=== PATIENT | female | born 1955 | race Caucasian/White ===

== ENCOUNTER → 2017-07-28 | Outpatient (CLI) | payer BC ==
[~2017-07-28] MED LIST: CITA20 PO; NEBI10 PO; TELM20 PO
[2017-07-29 09:49] LABS: Source ENDOCERVICAL/CE
== END | disposition home or self-care (01) ==
LOC: LAB 13:43
PROVIDERS: Nurse Practitioner
DX: Z01.419 Encounter for gynecological examination (general) (routine) without abnormal findings (principal)
CPT/HCPCS: G0145

== ENCOUNTER 2021-10-26 22:22 | Emergency (ER) | payer BC ==
[~2021-10-26] VITALS: Ht 167.6 cm; Wt 68.0 kg
[2021-10-26] MEDS ORDERED: Silvadene20 GM TOP (23:30)
[2021-10-26] MEDS ORDERED: Percocet 5-3251 EACH PO (23:30)
== END 2021-10-27 00:03 | disposition home or self-care (01) ==
LOC: ER 22:22
DX: T22.212A Burn of second degree of left forearm, initial encounter (principal); T31.0 Burns involving less than 10% of body surface; X15.0XXA Contact with hot stove (kitchen), initial encounter; I10 Essential (primary) hypertension; Z79.899 Other long term (current) drug therapy; Z23 Encounter for immunization
CPT/HCPCS: 90714; A9270

== ENCOUNTER 2021-11-04 07:23 | Day surgery (SDC) | payer BC ==
[~2021-11-04 07:23] MED LIST changes: +Percocet 5-3251 EACH PO; +Silvadene20 GM TOP
== END 2021-11-04 23:20 | disposition home or self-care (01) ==
LOC: WOUND 07:23
DX: T22.312A Burn of third degree of left forearm, initial encounter (principal); X08.8XXA Exposure to other specified smoke, fire and flames, initial encounter; S90.931A Unspecified superficial injury of right great toe, initial encounter; S90.934A Unspecified superficial injury of right lesser toe(s), initial encounter; I10 Essential (primary) hypertension
CPT/HCPCS: A9270; G0463

== ENCOUNTER 2021-11-10 03:08 | Day surgery (SDC) | payer BC | END 2021-11-10 23:28 | disposition home or self-care (01) | LOC: WOUND 03:08 | DX: T22.312A Burn of third degree of left forearm, initial encounter (principal); S90.931A Unspecified superficial injury of right great toe, initial encounter; S90.934A Unspecified superficial injury of right lesser toe(s), initial encounter | CPT/HCPCS: A9270 ==

== ENCOUNTER 2021-11-24 01:06 | Day surgery (SDC) | payer BC | END 2021-11-24 23:26 | disposition home or self-care (01) | LOC: WOUND 01:06 | DX: T22.312A Burn of third degree of left forearm, initial encounter (principal); X08.8XXA Exposure to other specified smoke, fire and flames, initial encounter; S90.931A Unspecified superficial injury of right great toe, initial encounter; S90.934A Unspecified superficial injury of right lesser toe(s), initial encounter | CPT/HCPCS: G0463 ==

== ENCOUNTER 2021-12-08 08:00 | Day surgery (SDC) | payer BC | END 2021-12-08 23:59 | disposition home or self-care (01) | LOC: WOUND 08:00 | DX: T22.312A Burn of third degree of left forearm, initial encounter (principal); X08.8XXA Exposure to other specified smoke, fire and flames, initial encounter; S90.931A Unspecified superficial injury of right great toe, initial encounter; S90.934A Unspecified superficial injury of right lesser toe(s), initial encounter; X58.XXXA Exposure to other specified factors, initial encounter | CPT/HCPCS: G0463 ==

== ENCOUNTER 2022-02-12 12:17 | Day surgery (SDC) | payer BC ==
[~2022-02-12] VITALS: Ht 167.6 cm; Wt 95.6 kg
[~2022-02-12 12:17] MED LIST changes: +ASPI81CH PO; +Bisoprolol Fumar5 MG PO; +MAGNESIUM PO; +METF500C PO; +MULTI-VITAMIN1 EAC2 PO; +VITAMIN B-122000 MC1 PO; +Vitamin D1000 UNI1 PO; +ZOCOR20 MG PO
[2022-02-12] MEDS ORDERED: CITALOPRAM HBR10 MG PO (12:43)
--- NOTE | 2022-02-12 12:55 | NUR ---
Ambulatory in Day SurgeryPatient states colon prep results clear. History, Chart, Medications and Allergies reviewed before start of procedure.Patient States Post-Procedure ride home has been arranged.
--- NOTE | 2022-02-12 13:45 | NUR ---
02/12/22 1345 Cherelle Mireles HISTORY, CHART, MEDICATIONS AND ALLERGIES REVIEWED BEFORE START OF PROCEDURE. PATIENT CONFIRMS NPO STATUS AND AGREES WITH SCHEDULED PROCEDURE. 3-LEAD EKG REVIEWED WITH PHYSICIAN PRIOR TO START OF PROCEDURE. MONITOR INTACT WITH CONTINUOUS PULSE OXIMETRY,CAPNOGRAPHY, 3-LEAD EKG, INTERMITTENT BP. SUPPLEMENTAL O2 TO BE TITRATED THROUGHOUT PROCEDURE TO MAINTAIN O2 SATURATION ABOVE 90%. PATIENT DETERMINED TO BE ASA APPROPRIATE FOR PROPOFOL SEDATION PRIOR TO START OF PROCEDURE BY
--- NOTE | 2022-02-12 14:08 | NUR ---
Patient up to Ambulate independently. Gait steady. Discharge instructions reviewed with patient. Patient verbalizes understanding. Copy given to patient to take home, WELL FAMILY. Patient States Post-Procedure ride home has been arranged. Discharged via wheelchair to private car for ride home.
== END 2022-02-12 14:11 | disposition home or self-care (01) ==
LOC: ORSCMMR 12:17 → ORD 13:00 → ORSCMMR 14:11
PROVIDERS: Surgery
PROC: 0DJD8ZZ Inspection of Lower Intestinal Tract, Via Natural or Artificial Opening Endoscopic (ICD-10-PCS; principal; 2022-02-12 13:00)
DX: Z12.11 Encounter for screening for malignant neoplasm of colon (principal); E11.9 Type 2 diabetes mellitus without complications; I10 Essential (primary) hypertension; E55.9 Vitamin D deficiency, unspecified; I42.2 Other hypertrophic cardiomyopathy; E66.9 Obesity, unspecified; Z68.33 Body mass index [BMI] 33.0-33.9, adult; Z79.82 Long term (current) use of aspirin; Z79.84 Long term (current) use of oral hypoglycemic drugs; Z79.899 Other long term (current) drug therapy
CPT/HCPCS: 82947; J2250; J2704; J7120

== ENCOUNTER 2022-05-28 13:39 | Inpatient (IN) | payer BC, MEDICARE ==
[~2022-05-28] VITALS: Ht 167.6 cm; Wt 96.9 kg
[~2022-05-28 13:39] MED LIST changes: +Celexa20 MG PO
[2022-05-28 14:42] LABS: BASOPHILS ABSOLUTE AUTO 0.06 K/mm3 (0.00-0.23); BASOPHILS PERCENT AUTO 1 % (0-2); EOSINOPHILS PERCENT AUTO 2 % (0-6); Hematocrit 35.8 % (33.0-51.0); Hemoglobin 11.4 g/dL (11.5-16.0); IMMATURE GRAN ABSOLUTE AUTO 0.01 K/mm3 (0.00-0.10); IMMATURE GRAN PERCENT AUTO 0 % (0-1); LYMPHOCYTES ABSOLUTE AUTO 1.53 K/mm3 (0.84-5.20); LYMPHOCYTES PERCENT AUTO 26 % (21-46); MONOCYTES ABSOLUTE AUTO 0.78 K/mm3 (0.16-1.47); MONOCYTES PERCENT AUTO 13 % (4-13); Mean Corpuscular HGB 27.1 pg (26.0-34.0); Mean Corpuscular HGB Conc 31.8 g/dL (31.5-36.5); Mean Corpuscular Volume 85 fL (80-100); NEUTROPHILS ABSOLUTE AUTO 3.32 K/mm3 (1.96-9.15); NEUTROPHILS PERCENT AUTO 57 % (41-73); Platelet Count 439 K/mm3 (150-400); RDW Coefficient Variation 15.6 % (11.7-14.2); RDW Standard Deviation 48.4 fL (35.1-46.3)
[2022-05-28 15:11] LABS: Albumin, Blood 3.3 g/dL (3.4-5.0); Albumin/Globulin Ratio 1.1 (0.8-1.8); Bilirubin, Total 1.2 mg/dL (0.1-1.0); Bun/Creatinine Ratio 24.4 (12.0-20.0); Calcium, Blood 9.1 mg/dL (8.5-10.1); Creatinine, Blood 0.94 mg/dL (0.40-1.00); Globulin, Blood 3.1 g/dL (2.2-4.0); Potassium, Blood 3.8 mmol/L (3.5-5.5); Total Protein, Blood 6.4 g/dL (6.4-8.2)
[2022-05-28 20:00] LABS: Anti-Xa UFH, PHA Monitoring <0.10 IU/mL; International Normalized Ratio 1.32; Prothrombin Time Results 13.6 Sec (9.7-11.5)
[2022-05-28 20:06] LABS: CPK Creatine Kinase 130 U/L (26-193)
[2022-05-28] MEDS ORDERED: Hydroxyzine HCl25 MG PO (21:40)
[2022-05-28] MEDS ORDERED: OMEP20ER PO (21:42)
[2022-05-28] MEDS ORDERED: SPIR25 PO (21:48)
[2022-05-28] MEDS ORDERED: TORSE20 PO (21:48)
[2022-05-29 02:21] LABS: BASOPHILS ABSOLUTE AUTO 0.07 K/mm3 (0.00-0.23); BASOPHILS PERCENT AUTO 1 % (0-2); EOSINOPHILS ABSOLUTE AUTO 0.12 K/mm3 (0.00-0.68); EOSINOPHILS PERCENT AUTO 2 % (0-6); Hematocrit 37.9 % (33.0-51.0); Hemoglobin 12.1 g/dL (11.5-16.0); IMMATURE GRAN ABSOLUTE AUTO 0.01 K/mm3 (0.00-0.10); IMMATURE GRAN PERCENT AUTO 0 % (0-1); LYMPHOCYTES ABSOLUTE AUTO 0.92 K/mm3 (0.84-5.20); LYMPHOCYTES PERCENT AUTO 17 % (21-46); MONOCYTES ABSOLUTE AUTO 0.55 K/mm3 (0.16-1.47); MONOCYTES PERCENT AUTO 10 % (4-13); Mean Corpuscular HGB 27.2 pg (26.0-34.0); Mean Corpuscular HGB Conc 31.9 g/dL (31.5-36.5); Mean Corpuscular Volume 85 fL (80-100); Mean Platelet Volume 8.9 fL (9.1-12.4); NEUTROPHILS ABSOLUTE AUTO 3.75 K/mm3 (1.96-9.15); NEUTROPHILS PERCENT AUTO 69 % (41-73); Platelet Count 408 K/mm3 (150-400); RDW Coefficient Variation 15.8 % (11.7-14.2); RDW Standard Deviation 48.9 fL (35.1-46.3); Red Blood Cell Count 4.45 M/mm3 (3.80-5.20); White Blood Cell Count 5.42 K/mm3 (4.00-11.30)
[2022-05-29 02:30] LABS: Albumin, Blood 3.1 g/dL (3.4-5.0); Albumin/Globulin Ratio 0.8 (0.8-1.8); Bilirubin, Total 1.1 mg/dL (0.1-1.0); Bun/Creatinine Ratio 24.1 (12.0-20.0); Calcium, Blood 8.6 mg/dL (8.5-10.1); Creatinine, Blood 0.87 mg/dL (0.40-1.00); Globulin, Blood 3.7 g/dL (2.2-4.0); Potassium, Blood 3.6 mmol/L (3.5-5.5); Total Protein, Blood 6.8 g/dL (6.4-8.2)
--- NOTE | 2022-05-29 05:26 | NUR ---
PRIOR TO ADMINISTRATION OF DILTIAZEM IV PUSH, CALLED DR. Belen STOUT TO VERIFY THE DOSE. PER HIS INSTRUCTIONS, DOSE WAS CHANGED TO 10 MG IV TO BE ADMINISTERED NOW. FURTHER INSTRUCTIONS INCLUDED CONTINUED MONITORING OF HEART RATE, AND IF THE HEART RATE PERSISTS AT GREATER 120 BPMS FOLLOWING THE ADMINISTRATION OF THE DILTIAZEM THEN PLANS ARE TO STARTED A DILTIAZEM DRIP. AT THIS TIME, PATIENT'S HEART RATE IS IN THE 90S - 110S. WILL CONTINUE TO MONITOR. RESPIRATORY VIRAL PANEL SWAB DONE AND SENT TO LAB FOR PROCESSING.
--- NOTE | 2022-05-29 06:40 | NUR ---
JUAN SANTOS ARRIVED TO [facility] VIA CART FROM THE ER, AFTER HAVING BEEN SENT OVER FROM THE [facility]ART CENTER WHERE SHE HAD AN ABNORMAL OUTPATIENT ECHO DONE. THE ECHO SHOWED THAT MRS. SANTOS'S HEART RHYTHM WAS ATRIAL FIBRILLATION WITH RVR AND HER EJECTION FRACTION WAS MEASURED OUT AT 30%. MRS. SANTOS REPORTED SHORTNESS OF BREATH, BILATERAL LOWER EXTREMITY EDEMA AND AND A COUGH SINCE THANKSGIVING, WITH THE SHORTNESS OF BREATH INCREASING TO THE POINT THAT HER ABILITY TO AMBULATE ANY DISTANCE BEYOND THAT OF 25 FEET CAUSED HER TO BECOME SHORT OF BREATH AND NEEDING TO TAKE A BREAK. SHE REPORTS NO AWARENESS OF ANY SICK CONTACTS. SEE PREVIOUS NOTES REGARDING HEART RATE. MRS. SANTOS RESPONDED FAVORABLY TO THE ONE TIME DOSE OF 10 MG OF IV DILTIAZEM, MAINTAINING A HEART RATE LESS THAN 120 BPM. HER HEART RATE DID JUMP UP INTO THE 140S WHEN SHE GOT UP TO THE BEDSIDE COMMODE IN THE 0600 HOUR THIS MORNING. WILL CONTINUE TO MONITOR.
[2022-05-29 07:47] LABS: Adenovirus Not Detected (NOT DETECT); Coronavirus 229E Not Detected (NOT DETECT); Coronavirus HKU1 Not Detected (NOT DETECT); Coronavirus NL63 Not Detected (NOT DETECT); Coronavirus OC43 Not Detected (NOT DETECT); Human Metapneumovirus Not Detected (NOT DETECT); Human Rhinovirus/Enterovirus Not Detected (NOT DETECT); Influenza A/H1 Not Detected (NOT DETECT); Influenza A/H3 Not Detected (NOT DETECT); SARS-Cov-2 (COVID-19), BioFire Not Detected (NOT DETECT)
[2022-05-29 08:16] LABS: Influenza A/2009-H1 Not Detected (NOT DETECT)
[2022-05-29 08:17] LABS: Bordetella pertussis Not Detected (NOT DETECT); Chlamydophila pneumoniae Not Detected (NOT DETECT); Influenza B Not Detected (NOT DETECT); Mycoplasma pneumoniae Not Detected (NOT DETECT); Parainfluenza Virus 1 Not Detected (NOT DETECT); Parainfluenza Virus 2 Not Detected (NOT DETECT); Parainfluenza Virus 3 Not Detected (NOT DETECT); Parainfluenza Virus 4 Not Detected (NOT DETECT); Respiratory Syncytial Virus Not Detected (NOT DETECT)
[2022-05-29 09:02] LABS: Digoxin (Lanoxin) 0.74 ug/mL (0.80-2.00)
--- NOTE | 2022-05-29 18:31 | NUR ---
SHIFT SUMMARY PT A/OX4 AND COOPERATIVE OF CARE. PT HR REMAINED A-FIB WITH RATE OF 100-140'S, NOTIFIED. AMIODARONE ORDERED AND RUNNIG PER EMAR. OTHER VSS THROUGHOUT SHIFT WITH 02 SATS IN THE 90'S ON RAN. PT TESTED POSITIVE FOR INFLUENZA A, DROPLET PRECAUTION. HEPARIN GTT RUNNING PER EMAR. PT REPORTED HEADACHE TOWARDS END OF SHIFT, TYLENOL ORDERED AND GIVEN, REPORTS RELIEF. PT USING BEDSIDE COMMODE IN ROOM, TOLERATES WELL. CONTINUING TO RECIEVE DIURETICS PER EMAR.
--- NOTE | 2022-05-29 23:45 | NUR ---
CALL TO MD RESIDENT DYLON STOUT REGARDING PATIENT'S PERSISTEN HARSH COUGH AND REPORT OF LACK OF SLEEP FOR 3-4 NIGHTS. REQUESTED GUAIFENESIN/CODEINE. ORDER RECEIVED FOR ONE TIME DOSE OF 5 ML AND MAY ADMINISTER AN ADDITIONAL 5 ML IF PATIENT DOESN'T RESPOND TO INITIAL 5 ML. ALSO, DR. STOUT STATED THAT IF THE PATIENT RESPONDS FAVORABLY AND TOLERATES THE MEDICATION AN ORDER MAY BE PLACED FOR PRN ADMINISTRATION.
--- NOTE | 2022-05-30 01:14 | NUR ---
ADMINISTERED ROBITUSSIN AC AT 23:57. PATIENT APPEARS TO HAVE RESPONDED WELL. COUGH IS LESS FREQUENT AND PATIENT IS RESTING COMFORTABLY. NO NEED FOR ADDITIONAL 5 ML AT THIS TIME. WILL DISCONTINUE NURSE NOTIFICATION ORDER AND CONTINUE TO MONITOR.
[2022-05-30 04:50] LABS: BASOPHILS ABSOLUTE AUTO 0.04 K/mm3 (0.00-0.23); BASOPHILS PERCENT AUTO 1 % (0-2); EOSINOPHILS PERCENT AUTO 0 % (0-6); Hematocrit 36.1 % (33.0-51.0); IMMATURE GRAN ABSOLUTE AUTO 0.02 K/mm3 (0.00-0.10); IMMATURE GRAN PERCENT AUTO 0 % (0-1); LYMPHOCYTES ABSOLUTE AUTO 0.86 K/mm3 (0.84-5.20); LYMPHOCYTES PERCENT AUTO 19 % (21-46); MONOCYTES ABSOLUTE AUTO 0.72 K/mm3 (0.16-1.47); MONOCYTES PERCENT AUTO 16 % (4-13); Mean Corpuscular HGB 27.4 pg (26.0-34.0); Mean Corpuscular HGB Conc 33.2 g/dL (31.5-36.5); Mean Corpuscular Volume 82 fL (80-100); Mean Platelet Volume 8.9 fL (9.1-12.4); NEUTROPHILS ABSOLUTE AUTO 2.99 K/mm3 (1.96-9.15); NEUTROPHILS PERCENT AUTO 65 % (41-73); Platelet Count 363 K/mm3 (150-400); RDW Coefficient Variation 15.7 % (11.7-14.2); RDW Standard Deviation 47.1 fL (35.1-46.3); Red Blood Cell Count 4.38 M/mm3 (3.80-5.20); White Blood Cell Count 4.63 K/mm3 (4.00-11.30)
[2022-05-30 05:09] LABS: Albumin/Globulin Ratio 0.8 (0.8-1.8); Bilirubin, Total 1.1 mg/dL (0.1-1.0); Bun/Creatinine Ratio 13.6 (12.0-20.0); Calcium, Blood 8.6 mg/dL (8.5-10.1); Creatinine, Blood 0.74 mg/dL (0.40-1.00); Globulin, Blood 3.6 g/dL (2.2-4.0); Potassium, Blood 3.2 mmol/L (3.5-5.5); Total Protein, Blood 6.6 g/dL (6.4-8.2)
--- NOTE | 2022-05-30 05:40 | NUR ---
NO ACUTE EVENTS OVERNIGHT LAST NIGHT. VITAL SOUNDS REMAIN STABLE WITH THE EXCEPTION OF THE ELEVATED HEART RATE. AFEBRILE THROUGHOUT THE SHIFT. HEPARIN AND AMIODARONE DRIP CONTINUE TO INFUSE. PATIENT'S HEART RHYTHM REMAINS TO BE ATRIAL FIBRILLATION WITH RVR IN THE 100S-120S. WITH COUGHING AND ACTIVITY, THE RATE WILL INCREASE INTO THE 130S-150S. CONSIDERING THIS, ALONG WITH THE FREQUENCY AND HARSHNESS OF THE COUGH AND THE PATIENT'S LACK OF SLEEP FOR SEVERAL NIGHTS IN A ROW NOW, GUAIFENESIN WIH CODEINE HAS BEEN ADDED TO HER PRN MEDS. THIS DID SEEM TO HELP AND MRS. SANTOS WAS ABLE TO GET ALMOST 3 HOURS OF UNINTERRUPTED SLEEP.
--- NOTE | 2022-05-30 09:48 | NUR ---
CALL TO Lamp Mechanic Dr Rodriguez CALL TO CLARIFY START OF AMIO PO WITH ONGOING GTT, ORDER TO ADMIN DOSE OF 400 MG PO AT NOON AND ALSO SECOND DOSE OF METOPROLOL XL 50 MG IF SBP IS >100.
--- NOTE | 2022-05-30 20:07 | NUR ---
SHIFT SUMMARY PT AOX4 T/O SHIFT, DENIES CP, AFIB MAINTAINED 100'S-120'S, OCCASIONALLY UP TO 130'S WHEN COUGHING OR UP AT BEDSIDE. TELE CALLED ONCE IN EARLY AFTERNOON D/T HR UP TO 170'S BRIEFLY WHEN PT UP TO COMMODE. PT STATES SOB WHEN UP TO BEDSIDE COMMODE, OTHERWISE BREATHING APPEARS EASY WITH SOME TACHYPNEA WITH REPOSITIONING OR COUGHING. SATS MAINTAIN >95% ON RA. SBP 90'S T/O DAY FOLLOWING [facility] TUTOR PER DR PARKS ORDERS. SBP DROPPED THIS EVENING TO 70'S WITH A MAP 50'S-60'S, HOSPITALIST NOTIFIED D/T UNABLE TO REACH DR Rodriguez. 250 ML BOLUS DID NOT SEEM TO HAVE MUCH EFFECT ON BP, HOWEVER AT THIS TIME SBP IS 90'S AND MAP APPEARS TO BE IMPROVED AT 70'S-80'S. ORDER PLACED FOR MIDODRINE PER DR Rodriguez AND ONCOMING RN GIVEN ORDERS FROM DR Rodriguez AND PARAMETERS OF WATCHING FOR SYMPTOMS R/T HYPOTENSION. DR Rodriguez STATES LONG PT IS ASYMPTOMATIC IF BP IS LOWER IT IS ACCEPTABLE. ORDER TO GIVE MIDODRINE PO AND IF MAP IS STILL LOW/PT SYMPTOMATIC CONTACT DR RIBEIRO FOR FURTHER ORDERS R/T MANAGEMENT OF COMPLEX PT. PT DENIES SX OF DIZZINESS, LIGHTHEADEDNESS OR LETHARGY T/O HYPOTENSION. DENIES CP. HR 100'S-110'S OCCASIONALLY 130'S WITH EPISODE OF COUGHING.
--- NOTE | 2022-05-31 06:59 | NUR ---
NO ACUTE EVENTS OVERNIGHT LAST NIGHT. PERSISTENT AFIB RVR WITH RATES IN THE 100S - 120S BLOOD PRESSURES CONSISTENTLY IN THE 90S/70S-80S WITH MAP IN THE 80S. PATIENT ASYMPTOMATIC. PERSISTENT HARSH PRODUCTIVE COUGH. PRN MEDICATIONS ADMINISTERED.
[2022-05-31 07:39] LABS: BASOPHILS ABSOLUTE AUTO 0.03 K/mm3 (0.00-0.23); BASOPHILS PERCENT AUTO 1 % (0-2); EOSINOPHILS ABSOLUTE AUTO 0.02 K/mm3 (0.00-0.68); EOSINOPHILS PERCENT AUTO 1 % (0-6); Hematocrit 37.8 % (33.0-51.0); Hemoglobin 12.1 g/dL (11.5-16.0); IMMATURE GRAN PERCENT AUTO 0 % (0-1); LYMPHOCYTES ABSOLUTE AUTO 1.18 K/mm3 (0.84-5.20); LYMPHOCYTES PERCENT AUTO 39 % (21-46); MONOCYTES ABSOLUTE AUTO 0.43 K/mm3 (0.16-1.47); MONOCYTES PERCENT AUTO 14 % (4-13); Mean Corpuscular Volume 84 fL (80-100); Mean Platelet Volume 8.9 fL (9.1-12.4); NEUTROPHILS ABSOLUTE AUTO 1.35 K/mm3 (1.96-9.15); NEUTROPHILS PERCENT AUTO 45 % (41-73); Platelet Count 319 K/mm3 (150-400); RDW Coefficient Variation 15.9 % (11.7-14.2); RDW Standard Deviation 48.8 fL (35.1-46.3); Red Blood Cell Count 4.48 M/mm3 (3.80-5.20); White Blood Cell Count 3.01 K/mm3 (4.00-11.30)
[2022-05-31 08:01] LABS: Albumin, Blood 2.7 g/dL (3.4-5.0); Albumin/Globulin Ratio 0.8 (0.8-1.8); Bilirubin, Total 0.6 mg/dL (0.1-1.0); Calcium, Blood 8.1 mg/dL (8.5-10.1); Creatinine, Blood 0.75 mg/dL (0.40-1.00); Globulin, Blood 3.4 g/dL (2.2-4.0); Magnesium, Blood 2.2 mg/dL (1.6-2.4); Thyroid Stimulating Hormone 1.53 uIU/mL (0.360-4.800); Total Protein, Blood 6.1 g/dL (6.4-8.2)
--- NOTE | 2022-05-31 18:53 | NUR ---
Shift Summary Pt alert, oriented X4; calm and cooperative with care. Pt ind in room. Pt denies pain, chest pain/pressure, nausea, sob, dizziness and numb/tingling. Tele afib 90-120's, bp soft, map >65. Bp this evening 79/62, pt assymptomatic, notified Dr Bauer, orders to have patient drink 250 of water and recehck in 45 minutes, recheck at 89/70, notified new orders for dig 0.25 if metoprolol is held this evening. Pt spo2 >90% on ra, sob with exertion and recovery. Other vss. No other acute changes noted. Will continue to monitor.
[2022-06-01 03:44] LABS: BASOPHILS ABSOLUTE AUTO 0.03 K/mm3 (0.00-0.23); BASOPHILS PERCENT AUTO 1 % (0-2); EOSINOPHILS ABSOLUTE AUTO 0.07 K/mm3 (0.00-0.68); EOSINOPHILS PERCENT AUTO 2 % (0-6); Hematocrit 39.3 % (33.0-51.0); Hemoglobin 12.4 g/dL (11.5-16.0); IMMATURE GRAN ABSOLUTE AUTO 0.02 K/mm3 (0.00-0.10); IMMATURE GRAN PERCENT AUTO 1 % (0-1); LYMPHOCYTES ABSOLUTE AUTO 1.63 K/mm3 (0.84-5.20); LYMPHOCYTES PERCENT AUTO 44 % (21-46); MONOCYTES ABSOLUTE AUTO 0.35 K/mm3 (0.16-1.47); MONOCYTES PERCENT AUTO 10 % (4-13); Mean Corpuscular HGB 26.6 pg (26.0-34.0); Mean Corpuscular HGB Conc 31.6 g/dL (31.5-36.5); Mean Corpuscular Volume 84 fL (80-100); Mean Platelet Volume 9.1 fL (9.1-12.4); NEUTROPHILS ABSOLUTE AUTO 1.58 K/mm3 (1.96-9.15); NEUTROPHILS PERCENT AUTO 43 % (41-73); Platelet Count 328 K/mm3 (150-400); RDW Coefficient Variation 15.8 % (11.7-14.2); RDW Standard Deviation 48.3 fL (35.1-46.3); Red Blood Cell Count 4.67 M/mm3 (3.80-5.20); White Blood Cell Count 3.68 K/mm3 (4.00-11.30)
[2022-06-01 04:30] LABS: Alanine Aminotransfer (ALT/SGP 55 U/L (12-78); Albumin, Blood 2.8 g/dL (3.4-5.0); Albumin/Globulin Ratio 0.8 (0.8-1.8); Alk Phos 76 U/L (50-136); Anion Gap 6 mmol/L (6-16); Aspartate Aminotrans (AST/SGOT 45 U/L (12-37); Bilirubin, Total 0.5 mg/dL (0.1-1.0); Blood Urea Nitrogen 10 mg/dL (8-24); Bun/Creatinine Ratio 12.3 (12.0-20.0); CO2, Blood 27 mmol/L (21-32); Calcium, Blood 8.2 mg/dL (8.5-10.1); Chloride, Blood 102 mmol/L (98-108); Creatinine, Blood 0.81 mg/dL (0.40-1.00); Digoxin (Lanoxin) 0.59 ug/mL (0.80-2.00); Globulin, Blood 3.4 g/dL (2.2-4.0); Glomerular Filtration Rate 80 (60-); Glucose, Blood 101 mg/dL (70-99); Potassium, Blood 4.1 mmol/L (3.5-5.5); Sodium, Blood 135 mmol/L (136-145); Total Protein, Blood 6.2 g/dL (6.4-8.2)
--- NOTE | 2022-06-01 05:32 | NUR ---
PT DID WELL ON RA OVERNIGHT, NO ISSUES WITH B/P AFTER MIDODRINE AND SCHEDULED DOSE OF TOPROL XL WAS TOLERATED, HR STILL AFIB 100'S-130'S, DIGOXIN WAS HELD PER ORDERS, HEPARIN GTT ENDING THE SHIFT AT 10 UNITS/KG/HE AND 14.4 ML/HR, NO APPARENT BLEEDING, NO PRNS, PT ONLY COMPLAINTS ARE TROUBLE SLEEPING AND SORENESS/REDNESS TO OLD MIKEY IV SITE, WARM COMPRESS PLACED TO AREA, EKG PENDING, NEXT ANTI XA SCHEDULED FOR 1100 TODAY
[2022-06-01] MEDS ORDERED: BENZ100A PO (11:09)
[2022-06-01] MEDS ORDERED: ELIQUIS5 M2 PO (11:09)
[2022-06-01] MEDS ORDERED: AMIODARONE HCL400 M2 PO (11:09)
[2022-06-01] MEDS ORDERED: CODEINE-GUAIFE120 M1 PO (11:10)
[2022-06-01] MEDS ORDERED: DEXT30SU PO (11:10)
[2022-06-01] MEDS ORDERED: METO50ER PO (11:11)
[2022-06-01] MEDS ORDERED: OSEL75CA PO (11:12)
[2022-06-01] MEDS ORDERED: MIDODRINE HCL10 M1 PO (11:13)
--- NOTE | 2022-06-01 18:05 | NUR ---
SHIFT SUMMARY: PT A&Ox4, COOPERATIVE W/CARE, INDEPENDENT IN ROOM. PT DENIES SOB, O2 SATS >92% ON RA. PT DENIES CP, INITIALLY AFIB ON MONITOR W/RATE SUSTAINING 100-120s, NEW MEDICATION ORDERS PLACED T/OUT THE DAY, PT MEDICATED ACCORDINGLY, AT THIS TIME RATE IS 80s-90s, AFIB CONTINUES, BP STABLE. HEPARIN INFUSION DC'd AND PT TRANSITIONED TO PO ELIQUIS. PT C/O TENDERNESS TO MIKEY (OLD IV SITE), WARM COMPRESS PROVIDED, PT REPORTS SOME IMPROVEMENT TO SYMPTOMS, REDNESS TO THE AREA DID NOT SPREAD T/OUT THE DAY. AT THIS TIME, PT RESTING IN ROOM W/SPOUSE AT BEDSIDE. WILL CONTINUE TO MONITOR UNTIL CHANGE OF SHIFT.
--- NOTE | 2022-06-02 04:28 | NUR ---
SHIFT SUMMARY: PT REMAINS ALERT AND ORIENTED X4, ABLE TO FOLLOW COMMANDS AND MAKE NEEDS KNOWN. BP STABLE, HR REMAINS AFIB 70'S-80'S, NO COMPLAINTS OF CP/PRESSURE, AFEBRILE, SATURATIONS >96% ON RA. RESPIRATIONS EVEN AND UNLABORED. PT HAVING NONPRODUCTIVE COUGH. STRENGTH EQUAL BILATERALLY, PULSES STRONG AND EQUAL THROUGHOUT. PT IND IN ROOM, ABLE TO AMBULATE TO AND FROM BATHROOM. NO BM THIS SHIFT. BED IN LOW, CALL LIGHT IN REACH, WILL REPORT TO ONCOMING RN.
--- NOTE | 2022-06-02 11:34 | NUR ---
POC BLOOD GLUCOSE CHECK NOT PERFORMED DUE TO PT REQUEST.
[2022-06-02] MEDS ORDERED: DIGOX125 MC1 PO (13:55)
[2022-06-02] MEDS ORDERED: JARDIANCE10 MG PO (13:56)
[2022-06-02] MEDS ORDERED: METO50ER PO (13:57)
[2022-06-02] MEDS ORDERED: ENTRESTO 24 MG1 EACH PO (13:57)
--- NOTE | 2022-06-02 15:30 | NUR ---
DISCHARGE SUMMARY: PT HAS BEEN CLEARED FOR DISCHARGE. IV ACCESS DC'd WNL. PT DRESSES SELF. PT PROVIDED W/DC INSTRUCTIONS AND PAPERWORK, V/U, ALL QUESTIONS HAVE BEEN ANSWERED. PT ESCORTED FROM UNIT VIA W/C W/OUT INCIDENT.
== END 2022-06-02 15:18 | disposition home health service (06) | DRG 193 ==
LOC: ER 13:39 → PCU 13:40 → ERHOLD 13:40 → PCU 20:58
PROVIDERS: Emergency Medicine; Family Medicine; Internal Medicine; Internal Medicine Cardiovascular Disease; Internal Medicine Interventional Cardiology; Physician Assistant; ADMIT Internal Medicine
DX: J10.1 Influenza due to other identified influenza virus with other respiratory manifestations (principal); I50.21 Acute systolic (congestive) heart failure; J96.01 Acute respiratory failure with hypoxia; I42.8 Other cardiomyopathies; I48.91 Unspecified atrial fibrillation; Z20.822 Contact with and (suspected) exposure to COVID-19; E11.9 Type 2 diabetes mellitus without complications; I11.0 Hypertensive heart disease with heart failure; E53.8 Deficiency of other specified B group vitamins; E78.00 Pure hypercholesterolemia, unspecified; K21.9 Gastro-esophageal reflux disease without esophagitis; M81.0 Age-related osteoporosis without current pathological fracture; I27.20 Pulmonary hypertension, unspecified; G47.00 Insomnia, unspecified; F41.8 Other specified anxiety disorders; E66.9 Obesity, unspecified; Z90.49 Acquired absence of other specified parts of digestive tract; Z68.32 Body mass index [BMI] 32.0-32.9, adult; Z87.891 Personal history of nicotine dependence; Z79.82 Long term (current) use of aspirin; Z79.899 Other long term (current) drug therapy
CPT/HCPCS: 0202U; 36415; 71045; 80053; 80162; 82550; 82947; 83735; 83880; 84443; 84484; 85025; 85520; 85610; 85730; 93005; 93010; 93971; 96365; 96375; 99285-25; A9270; G0378; J0282; J1160; J1644; J1940; J3480; J7030; J7050; J7060

== ENCOUNTER 2022-07-02 06:23 | Day surgery (SDC) | payer BC, MEDICARE ==
[~2022-07-02 06:23] MED LIST changes: +AMIODARONE HCL400 M2 PO; +BENZ100A PO; +CODEINE-GUAIFE120 M1 PO; +DEXT30SU PO; +DIGOX125 MC1 PO; +ELIQUIS5 M2 PO; +ENTRESTO 24 MG1 EACH PO; +Hydroxyzine HCl25 MG PO; +JARDIANCE10 MG PO; +METO50ER PO; +MIDODRINE HCL10 M1 PO; +OMEP20ER PO; +OSEL75CA PO; +SPIR25 PO; +TORSE20 PO
--- NOTE | 2022-07-02 08:08 | NUR ---
PT VERBALIZED UNDERSTANDING OF WRITTEN AND VERBAL D/C INST. IV REMOVED. PT TAKEN OUT OF THE HRT CENTER VIA W/C. SR 70-75BPM ON D/C.
== END 2022-07-02 22:44 | disposition home or self-care (01) ==
LOC: MHTC 06:23
DX: I48.91 Unspecified atrial fibrillation (principal)
CPT/HCPCS: 92960; J7030

== ENCOUNTER 2022-07-23 06:13 | Day surgery (SDC) | payer BC, MEDICARE ==
[2022-07-23] MEDS ORDERED: Amiodarone HCl200 MG PO (06:52)
--- NOTE | 2022-07-23 07:15 | NUR ---
PT ARRIVED FOR PROCEDURE, MONITOR SHOWS SR, CONFIRMED WITH EKG; PROCEDURE CANCELLED. DR NIETO DISCUSSED PLAN WITH PT, ADJUSTED MEDS. PT RECEIVED MED LIST WITH CHANGES AND WILL FOLLOW UP IN OFFICE. PT LEFT FACILITY IN STABLE CONDITION.
== END 2022-07-23 23:33 | disposition home or self-care (01) ==
LOC: MHTC 06:13
DX: I48.91 Unspecified atrial fibrillation (principal); E78.5 Hyperlipidemia, unspecified
CPT/HCPCS: 93005; 93010

== ENCOUNTER 2023-07-02 07:07 | Observation (INO) | payer BC, MEDICARE ==
[~2023-07-02] VITALS: Ht 167.6 cm; Wt 102.1 kg
[~2023-07-02 07:07] MED LIST changes: +Amiodarone HCl200 MG PO
[2023-07-02 07:56] LABS: BASOPHILS ABSOLUTE AUTO 0.06 K/mm3 (0.00-0.23); BASOPHILS PERCENT AUTO 1 % (0-2); EOSINOPHILS ABSOLUTE AUTO 0.05 K/mm3 (0.00-0.68); EOSINOPHILS PERCENT AUTO 1 % (0-6); Hematocrit 45.9 % (33.0-51.0); Hemoglobin 15.4 g/dL (11.5-16.0); IMMATURE GRAN ABSOLUTE AUTO 0.05 K/mm3 (0.00-0.10); IMMATURE GRAN PERCENT AUTO 1 % (0-1); LYMPHOCYTES ABSOLUTE AUTO 1.63 K/mm3 (0.84-5.20); LYMPHOCYTES PERCENT AUTO 16 % (21-46); MONOCYTES ABSOLUTE AUTO 0.91 K/mm3 (0.16-1.47); MONOCYTES PERCENT AUTO 9 % (4-13); Mean Corpuscular HGB 31.2 pg (26.0-34.0); Mean Corpuscular HGB Conc 33.6 g/dL (31.5-36.5); Mean Corpuscular Volume 93 fL (80-100); Mean Platelet Volume 9.7 fL (9.1-12.4); NEUTROPHILS ABSOLUTE AUTO 7.82 K/mm3 (1.96-9.15); NEUTROPHILS PERCENT AUTO 74 % (41-73); Platelet Count 246 K/mm3 (150-400); RDW Coefficient Variation 16.8 % (11.7-14.2); RDW Standard Deviation 56.8 fL (35.1-46.3); Red Blood Cell Count 4.94 M/mm3 (3.80-5.20); White Blood Cell Count 10.52 K/mm3 (4.00-11.30)
[2023-07-02 08:24] LABS: Albumin, Blood 3.7 g/dL (3.4-5.0); Albumin/Globulin Ratio 0.9 (0.8-1.8); Bilirubin, Total 0.6 mg/dL (0.1-1.0); Bun/Creatinine Ratio 23.4 (12.0-20.0); Calcium, Blood 9.4 mg/dL (8.5-10.1); Creatinine, Blood 0.6 mg/dL (0.40-1.00); Globulin, Blood 4.1 g/dL (2.2-4.0); Potassium, Blood 3.3 mmol/L (3.5-5.5); Total Protein, Blood 7.8 g/dL (6.4-8.2)
[2023-07-02 15:15] VITALS: BP 119/72
--- NOTE | 2023-07-02 18:06 | NUR ---
shift summary patient arrived to pcu at 1512 from er and transfered to pcu bed independently. patient is alert and oriented x4. perrla. vital signs stable. tele v paced 85. patient is on room air. admit complete. patient reports no chest pain/pressure or shortness of breath. patient mentioned some chest and back discomfort from beign cardioverted. patient received warm blanket which provided some relief. patient informed this rn of increase in discomfort in back and this rn called md and order placed for tylenol. see admit assessment for further detials. patient desatted when sleeping and placed on 2l nc. plan is for patient to be observed tonight and go home tomorrow. patient is independent in the room and calls appropriately.
[2023-07-02 19:34] VITALS: BP 101/75
[2023-07-03 00:03] VITALS: BP 117/69
[2023-07-03 03:07] VITALS: BP 108/67
[2023-07-03 04:11] LABS: BASOPHILS ABSOLUTE AUTO 0.06 K/mm3 (0.00-0.23); BASOPHILS PERCENT AUTO 1 % (0-2); EOSINOPHILS ABSOLUTE AUTO 0.08 K/mm3 (0.00-0.68); EOSINOPHILS PERCENT AUTO 1 % (0-6); Hematocrit 41.5 % (33.0-51.0); Hemoglobin 13.7 g/dL (11.5-16.0); IMMATURE GRAN ABSOLUTE AUTO 0.04 K/mm3 (0.00-0.10); IMMATURE GRAN PERCENT AUTO 0 % (0-1); LYMPHOCYTES ABSOLUTE AUTO 1.06 K/mm3 (0.84-5.20); LYMPHOCYTES PERCENT AUTO 11 % (21-46); MONOCYTES ABSOLUTE AUTO 0.88 K/mm3 (0.16-1.47); MONOCYTES PERCENT AUTO 9 % (4-13); Mean Corpuscular HGB 31.1 pg (26.0-34.0); Mean Corpuscular Volume 94 fL (80-100); Mean Platelet Volume 9.7 fL (9.1-12.4); NEUTROPHILS PERCENT AUTO 79 % (41-73); Platelet Count 203 K/mm3 (150-400); RDW Standard Deviation 58.8 fL (35.1-46.3); White Blood Cell Count 9.92 K/mm3 (4.00-11.30)
[2023-07-03 04:33] LABS: Albumin, Blood 3.1 g/dL (3.4-5.0); Albumin/Globulin Ratio 0.7 (0.8-1.8); Bilirubin, Total 1.5 mg/dL (0.1-1.0); Bun/Creatinine Ratio 17.5 (12.0-20.0); Calcium, Blood 9.2 mg/dL (8.5-10.1); Creatinine, Blood 0.63 mg/dL (0.40-1.00); Globulin, Blood 4.2 g/dL (2.2-4.0); Magnesium, Blood 2.1 mg/dL (1.6-2.4); Phosphorus, Blood 3.2 mg/dL (2.5-4.9); Potassium, Blood 3.5 mmol/L (3.5-5.5); Total Protein, Blood 7.3 g/dL (6.4-8.2)
--- NOTE | 2023-07-03 05:12 | NUR ---
SHIFT SUMMARY. PT HAS BEEN DOING WELL THIS SHIFT. AOX4, PLEASANT, COOPERATIVE WITH CARE. INDEPENDENT WITHIN ROOM. CALLS APPROPRIATELY FOR ASSISTANCE. PT HAS HAD TELE ON THROUGHOUT SHIFT, RUNNING VENTRICULAR PACED RHYTHM WITH NO EVENTS THUS FAR. HAS EXPERIENCED SOME RESIDUAL CHEST/BACK SORENESS FROM [facility] YESTERDAY MORNING. WAS GIVEN PRN TYLENOL ON DAY SHIFT WHICH PT REPORTED TOOK THE EDGE OFF A BIT BUT DID NOT ADEQUATELY MANAGE DISCOMFORT. CALLED RESIDENT WHO ORDERED 25 MCG FENTANYL. PT WAS ABLE TO REST COMFORTABLY AFTER ADMINISTRATION AND REPORTED NO FURTHER PAIN UNTIL THIS MORNING WHEN SHE SAID THE DISCOMFORT WAS STARTING TO ESCALATE AGAIN WITH NEW NAUSEA. NOTIFIED RESIDENT AGAIN WHO ORDERED ANOTHER ONE TIME DOSE OF 25 MCG FENTANYL AND A ONE TIME DOSE OF 4 MG ZOFRAN. ADMINISTERED BOTH AND PT REPORTS SHE IS FEELING BETTER NOW. HAS BEEN MAINTAINING SATURATIONS >92% ON 2 L VIA NC THROUGHOUT SHIFT. DECLINED TO HAVE CPAP TONIGHT DESPITE REPORTEDLY TYPICALLY WEARING ONE AT NIGHT. DESPITE THIS, HAS EXPERINCED NO DESATURATIONS THUS FAR. PT HAS BEEN IN CHAIR THROUGHOUT MOST OF SHIFT SHE REPORTS THIS HELPS TO EASE HER DISCOMFORT. CHAIR LOCKED. CALL LIGHT LEFT WITHIN REACH. CONTINUING TO MONITOR.
[2023-07-03 08:02] VITALS: BP 128/73
--- NOTE | 2023-07-03 08:15 | NUR ---
CARE OF PT ASSUMED AT 0700, BEDSIDE SHIFT REPORT TAKEN. PT AWAKE AND ALERT. SATS 98% ON 1.5L VIA N/C. O2 REMOVED, SATS REMAIN OVER 90%. PT C/O MID BILAT. CHEST DISCOMFORT THAT RADIATES TO BACK 11/28. STATES IT IS BETTER THAN LAST NIGHT. DESCRIBES THE PAIN AN ACHE, WORSE WITH DEEP BREATH AND SHARP W DEEP BREATH. PT SITTING UP IN BED, ABLE TO ANSWER QUESTIONS, PT CALM AND APPEARS TO BE IN NO CURRENT DISTRESS.
--- NOTE | 2023-07-03 10:55 | NUR ---
PT DESATURATED WHILE SLEEPING DOWN TO 86%. PT STATES SHES USES A CPAP AT HOME. PT PLACED ON 2L VIA N/C, SATS NOW >90%. RT NOTIFIED.
--- NOTE | 2023-07-03 11:13 | NUR ---
DR ZULETA AT BEDSIDE TO SEE PT, UPDATE GIVEN. POSSIBLE PLANS TO DISCHARGE HOME TODAY DEPENDING ON CARDIOLOGY.
--- NOTE | 2023-07-03 11:54 | NUR ---
PT TO BE DISCHARGED TO HOME PER DR RANDALL, AWAITING ORDERS. PT TO FOLLOW UP WITH CARDIOLOGY AND PCP THIS WEEK. HAND WRITTEN "DO NOT RETURN TO WORK NOTE UNTIL CLEARED BY PCP", GIVEN TO PATIENT. PT STATES CHEST DISCOMFORT WAS IMPROVED WITH TYLENOL. BIVENTRICULAR PACEMAKER EDUCATION PRINTED OUT FOR PATIENT.
[2023-07-03 13:25] VITALS: BP 106/64
[2023-07-03] MEDS ORDERED: Acetaminophen650 M1 PO (14:04)
--- NOTE | 2023-07-03 14:26 | NUR ---
VERBAL AND WRITTEN DC INFORMATION GIVEN TO PT AND PT'S WITH CLEAR UNDERSTANDING. PT TO FOLLOW UP WITH HER PCP AND HER 2ND PRESSMAN THIS WEEK/RUI. PT DC'D HOME IN STABLE CONDITION
== END 2023-07-03 14:49 | disposition home or self-care (01) ==
LOC: ER 07:07 → PCU 07:08
PROVIDERS: Emergency Medicine; ADMIT Hospitalist
DX: I48.0 Paroxysmal atrial fibrillation (principal); I48.92 Unspecified atrial flutter; R07.89 Other chest pain; I11.0 Hypertensive heart disease with heart failure; I50.20 Unspecified systolic (congestive) heart failure; I27.20 Pulmonary hypertension, unspecified; F32.9 Major depressive disorder, single episode, unspecified; E78.5 Hyperlipidemia, unspecified; M81.0 Age-related osteoporosis without current pathological fracture; E11.9 Type 2 diabetes mellitus without complications; Z79.899 Other long term (current) drug therapy; Z87.891 Personal history of nicotine dependence
CPT/HCPCS: 36415; 71045; 71275; 80053; 83735; 83880; 84100; 84484; 85025; 92960; 93005; 93010; 94762; 96361-59; 96365-59; 96375-59; 96376; 96376-59; 99152; 99291-25; A9270; G0378; J2270; J2405; J2704; J3010; J7030; Q9967

== ENCOUNTER 2024-03-16 07:22 | Day surgery (SDC) | payer OTHER ==
[~2024-03-16] VITALS: Ht 167.6 cm; Wt 93.0 kg
[~2024-03-16 07:22] MED LIST changes: +Acetaminophen650 M1 PO; +Balanced Salt Epinephrine Irrigation Solution 500 mL IR SCH; +Lidocaine HCl/Pf 1% 5 ML VIAL ONE; +Lidocaine HCl/Pf 1% 5 ML VIAL XX SCH; +Moxifloxacin HCL 0.5 MG/0.1 ML 0.4MLSYR LEFTEYE SCH; +NS 500 ML IV ONE; +PHENYLEPHRINE\\TROPICAMIDE\\TETRACAINE OPHTHALMIC DILATING SOLN LEFTEYE PRN; +Povidone-Iodine 450 DROP/30 ML Solution LEFTEYE SCH; +Povidone-Iodine 450 DROP/30 ML Solution ONE; +SOTO80; +Tetracaine HCl/Pf 0.5% Opth Soln 4 ml ONE; +Triamcinolone Inj Susp 40 MG / ML 1ML Vial INJ SCH; +Triamcinolone Inj Susp 40 MG / ML 1ML Vial ONE
[2024-03-16] MEDS ORDERED: NS 500 ML IV ONE (07:55)
[2024-03-16] MEDS ORDERED: Midazolam HCl 1MG / ML 2ML Vial ONE (08:15)
[2024-03-16 08:47] VITALS: BP 157/71
== END 2024-03-16 09:05 | disposition home or self-care (01) ==
LOC: ORSCSDS 07:22
PROVIDERS: Ophthalmology
PROC: 08RK3JZ Replacement of Left Lens with Synthetic Substitute, Percutaneous Approach (ICD-10-PCS; principal; 2024-03-16 08:30)
DX: E11.36 Type 2 diabetes mellitus with diabetic cataract (principal); H25.812 Combined forms of age-related cataract, left eye; I48.91 Unspecified atrial fibrillation; Z96.1 Presence of intraocular lens; I10 Essential (primary) hypertension; Z79.01 Long term (current) use of anticoagulants; Z79.899 Other long term (current) drug therapy
CPT/HCPCS: 82947; J2001; J2250; J3301; J7040; V2632